=== PATIENT | male | born 1970 | race Caucasian/White ===

== ENCOUNTER 2018-11-14 07:31 | Inpatient (IN) | payer OTHER ==
[~2018-11-14] VITALS: Ht 167.6 cm; Wt 85.3 kg
--- NOTE | 2018-11-14 07:46 | NUR ---
FIRST CONTACT WITH PT. PT FROM [facility], TRANSPORTED BY STAFF. PT C/O RUQ ABD PAIN WITH N/V/D. ROUNDED ON PT, IS GOING TO ORDER LABS AND MEDS. PT INFORMED OF POC, AGREEABLE TO PLAN. VSS.
[2018-11-14] MEDS ORDERED: MORPHINE SULFATE 4 MG/ML, 1ML ONE (07:52)
[2018-11-14] MEDS ORDERED: ONDANSETRON 2MG/ML, 2ML ONE (07:52)
[2018-11-14] MEDS ORDERED: PLEASE ENTER ALLERGIES MC SCH (08:00)
[2018-11-14] MEDS ORDERED: ONDANSETRON 2MG/ML, 2ML IVPush ONE (08:00)
[2018-11-14] MEDS ORDERED: MORPHINE SULFATE 4 MG/ML, 1ML IVPush PRN (08:00)
[2018-11-14 08:09] LABS: BASOPHILS # (AUTO) 0.03 x10^3/uL (0-0.1); BASOPHILS % (AUTO) 0 % (0-1); EOSINOPHILS # (AUTO) 0.21 x10^3/uL (0-0.4); EOSINOPHILS % (AUTO) 2 % (1-7); LYMPHOCYTES # (AUTO) 2.33 x10^3/uL (1-3.4); LYMPHOCYTES % (AUTO) 25 % (22-44); MD NO; MEAN CORPUSCULAR HEMOGLOBIN 30.7 pg (27.5-34.5); MEAN CORPUSCULAR HGB CONC 33.5 g/dL (33.2-36.2); MEAN CORPUSCULAR VOLUME 91.7 fL (81-97); MEAN PLATELET VOLUME 7.9 fL (7.4-10.4); MONOCYTES # (AUTO) 0.49 x10^3/uL (0.2-0.8); MONOCYTES % (AUTO) 5 % (2-9); NEUTROPHILS # (AUTO) 6.46 x10^3/uL (1.8-6.8); NEUTROPHILS % (AUTO) 68 % (42-75); PLATELET COUNT 318 x10^3/uL (130-400); RED BLOOD COUNT 4.69 x10^6/uL (4.38-5.82); RED CELL DISTRIBUTION WIDTH 13.2 % (9.4-14.8)
[2018-11-14 08:18] LABS: ALBUMIN 3.9 g/dL (3.4-5.0); ANION GAP 8 mmol/L (5-15); CALCIUM 8.9 mg/dL (8.5-10.1); CHLORIDE 108 mmol/L (98-107)
[2018-11-14 08:21] LABS: ALANINE AMINOTRANSFERASE 19 U/L (12-78); ALKALINE PHOSPHATASE 94 U/L (45-117); BILIRUBIN,TOTAL 0.5 mg/dL (0.2-1.0); CREATININE 1.22 mg/dL (0.7-1.3); TOTAL PROTEIN 7.2 g/dL (6.4-8.2)
--- NOTE | 2018-11-14 08:48 | NUR ---
Patient is resting comfortably in bed. Vital Signs within normal limits. Pt states pain improved after meds, appears to this RN to be comfortable. NAD.
[2018-11-14] MEDS ORDERED: CEFOTETAN PMX 2GM/50ML 50 ML IV ONE (09:30)
--- NOTE | 2018-11-14 09:49 | NUR ---
Med requested from pharmacy. Pt resting in bed, NADN, denies needs.
[2018-11-14] MEDS ORDERED: LISI5TAB7 PO (09:50)
[2018-11-14] MEDS ORDERED: METF500T17 PO (09:50)
--- NOTE | 2018-11-14 10:17 | NUR ---
DR. CORONADO ROUNDED ON PT. ABX INFUSING PER ORDER. VSS. NAD. CALL LIGHT IN REACH.
--- NOTE | 2018-11-14 10:26 | NUR ---
REPORT GIVEN TO SEJAL, PT WILL GO TO ROOM 437. SURG PLANNED FOR FRIDAY. PT STABLE AND APPROPRIATE FOR ADMIT. VSS.
[2018-11-14 10:47] VITALS: BP 129/68
[2018-11-14] MEDS ORDERED: SODIUM CHLORIDE 0.9% 1,000 ML IV SCH (11:30)
[2018-11-14] MEDS ORDERED: hydrALAzine 20 MG/ML, 1ML IVPush PRN (11:30)
[2018-11-14] MEDS ORDERED: ONDANSETRON 2MG/ML, 2ML IVPush PRN (11:30)
[2018-11-14] MEDS ORDERED: ACETAMINOPHEN 325 MG TABLET PO PRN (11:30)
[2018-11-14] MEDS ORDERED: morphine SULFATE 10 MG/ML, 1ML IVPush PRN (11:30)
[2018-11-14] MEDS ORDERED: LABETALOL 5MG/ML, 20ML IVPush PRN (11:30)
[2018-11-14] MEDS ORDERED: PROMETHAZINE 25 MG/ML, 1ML IM PRN (11:30)
[2018-11-14] MEDS: INSULIN LISPRO 100 UNITS/ML, PEN SQ-INSULIN SCH ×3 (11:34→20:28)
[2018-11-14] MEDS: SODIUM CHLORIDE 0.9% 1,000 ML IV SCH ×5 (11:40→18:35)
[2018-11-14 12:17] LABS: CHOLESTEROL, TOTAL 165 mg/dL (140-239); TRIGLYCERIDES 84 mg/dL (50-200); VLDL CHOLESTEROL 17 mg/dL (0-25)
[2018-11-14 12:19] LABS: CHOL/HDL RATIO 3.6; HDL CHOL % 28 % (26-37); HDL CHOLESTEROL (DIRECT) 46 mg/dL (40-60); LDL CHOLESTEROL,CALCULATED 102 mg/dL (54-169); LDL/HDL RATIO 2.2 (0.5-3.0)
[2018-11-14 12:20] LABS: HEMOGLOBIN A1C 6.3 % (4.2-6.3)
[2018-11-14] MEDS: CEFTRIAXONE PMX 1GM/50ML 50 ML IV SCH (12:25)
[2018-11-14] MEDS: METRONIDAZOLE PMX 500MG/100ML 100 ML IV SCH ×2 (13:11→19:44)
[2018-11-14 14:40] LABS: AMPHETAMINE SCREEN, URINE Negative (Negative); BARBITURATE SCREEN, URINE Negative (Negative); BENZODIAZEPINE SCREEN, URINE Negative (Negative); CANNABINOID SCREEN, URINE Negative (Negative); COCAINE SCREEN, URINE Negative (Negative); METHADONE SCREEN, URINE Negative (Negative); OPIATE SCREEN, URINE Positive (Negative)
[2018-11-14 14:45] VITALS: BP 103/66
[2018-11-14 21:25] VITALS: BP 104/67
[2018-11-15] MEDS: SODIUM CHLORIDE 0.9% 1,000 ML IV SCH ×3 (01:25→18:19)
[2018-11-15] MEDS: METRONIDAZOLE PMX 500MG/100ML 100 ML IV SCH ×4 (01:25→20:11)
[2018-11-15 02:49] VITALS: BP 103/66
[2018-11-15 05:29] LABS: BASOPHILS # (AUTO) 0.03 x10^3/uL (0-0.1); BASOPHILS % (AUTO) 0 % (0-1); EOSINOPHILS # (AUTO) 0.19 x10^3/uL (0-0.4); EOSINOPHILS % (AUTO) 3 % (1-7); LYMPHOCYTES # (AUTO) 2.11 x10^3/uL (1-3.4); LYMPHOCYTES % (AUTO) 33 % (22-44); MD NO; MEAN CORPUSCULAR HEMOGLOBIN 30.9 pg (27.5-34.5); MEAN CORPUSCULAR HGB CONC 33.5 g/dL (33.2-36.2); MEAN CORPUSCULAR VOLUME 92.3 fL (81-97); MEAN PLATELET VOLUME 8.1 fL (7.4-10.4); MONOCYTES # (AUTO) 0.49 x10^3/uL (0.2-0.8); MONOCYTES % (AUTO) 8 % (2-9); NEUTROPHILS # (AUTO) 3.55 x10^3/uL (1.8-6.8); NEUTROPHILS % (AUTO) 56 % (42-75); PLATELET COUNT 251 x10^3/uL (130-400); RED BLOOD COUNT 4.08 x10^6/uL (4.38-5.82); RED CELL DISTRIBUTION WIDTH 13.6 % (9.4-14.8)
[2018-11-15 05:41] LABS: CHLORIDE 113 mmol/L (98-107)
[2018-11-15 05:48] LABS: ALANINE AMINOTRANSFERASE 16 U/L (12-78); ALKALINE PHOSPHATASE 71 U/L (45-117); ANION GAP 2 mmol/L (5-15); BILIRUBIN,TOTAL 0.6 mg/dL (0.2-1.0); CREATININE 1.12 mg/dL (0.7-1.3); TOTAL PROTEIN 5.7 g/dL (6.4-8.2)
[2018-11-15] MEDS: INSULIN LISPRO 100 UNITS/ML, PEN SQ-INSULIN SCH ×4 (06:44→20:16)
[2018-11-15 07:38] VITALS: BP 100/67
[2018-11-15] MEDS: CEFTRIAXONE PMX 1GM/50ML 50 ML IV SCH (11:07)
[2018-11-15 12:33] VITALS: BP 108/62
[2018-11-15] MEDS: HYDROcodone/APAP 5/325 TABLET PO PRN (18:18)
[2018-11-15 19:36] VITALS: BP 108/68
[2018-11-16 01:08] VITALS: BP 117/72
[2018-11-16] MEDS: METRONIDAZOLE PMX 500MG/100ML 100 ML IV SCH ×2 (01:38→09:01)
[2018-11-16] MEDS ORDERED: EPINEPHRINE 1 MG/ML, 1ML ONE (06:07)
[2018-11-16] MEDS ORDERED: BUPIVACAINE/PF 0.5% ONE (06:07)
[2018-11-16] MEDS ORDERED: SUCCINYLCHOLINE 20 MG/ML, 10ML ONE (06:44)
[2018-11-16] MEDS: INSULIN LISPRO 100 UNITS/ML, PEN SQ-INSULIN SCH ×4 (06:44→20:31)
[2018-11-16] MEDS ORDERED: LIDOCAINE-MPF 2% ,5ML ONE (06:44)
[2018-11-16] MEDS ORDERED: PROPOFOL 10 MG/ML, 20ML ONE (06:44)
[2018-11-16] MEDS ORDERED: FENTANYL PF 100 MCG/2ML ONE ×2 (06:44→07:46)
[2018-11-16] MEDS ORDERED: MIDAZOLAM 1 MG/ML, 2ML ONE (06:44)
[2018-11-16] MEDS ORDERED: ROCURONIUM 10MG/ML,5ML ONE (06:45)
[2018-11-16] MEDS ORDERED: ONDANSETRON 2MG/ML, 2ML ONE (06:45)
[2018-11-16] MEDS ORDERED: DEXAMETHASONE 4 MG/ML, 1ML ONE ×2 (06:45)
[2018-11-16] MEDS ORDERED: CEFOTETAN PMX 2GM/50ML 50 ML ONE (06:45)
[2018-11-16] MEDS ORDERED: GLYCOPYRROLATE 0.2MG/1ML, 5ML ONE (07:26)
[2018-11-16] MEDS ORDERED: NEOSTIGMINE 1 MG/ML, 10ML ONE (07:26)
[2018-11-16] MEDS ORDERED: METOCLOPRAMIDE 5 MG/ML, 2ML IV PRN (07:30)
[2018-11-16] MEDS ORDERED: HYDROmorphone 2 MG/ML, 1ML IVPush PRN ×2 (07:30→19:00)
[2018-11-16] MEDS ORDERED: ONDANSETRON 2MG/ML, 2ML IV PRN (07:30)
[2018-11-16] MEDS ORDERED: hydrALAzine 20 MG/ML, 1ML IV PRN (07:30)
[2018-11-16] MEDS ORDERED: LORazepam 2 MG/ML, 1ML IVPush PRN (07:30)
[2018-11-16] MEDS ORDERED: ACETAMINOPHEN 325 MG TABLET PO PRN (07:30)
[2018-11-16] MEDS ORDERED: OXYcodone 5 MG/5 ML ORAL.SOL UDC PO PRN ×2 (07:30→09:00)
[2018-11-16] MEDS ORDERED: METOPROLOL 1 MG/ML, 5ML IV PRN (07:30)
[2018-11-16] MEDS ORDERED: POTASSIUM CHLORIDE 10 MEQ in D5%-0.45% NACL 1,000 ML IV SCH (07:30)
[2018-11-16] MEDS ORDERED: LABETALOL 5MG/ML, 20ML IV PRN (07:30)
[2018-11-16] MEDS ORDERED: MEPERIDINE/PF 25MG/0.5ML IVPush PRN (07:30)
[2018-11-16] MEDS ORDERED: OXYcodone 5 MG/5 ML ORAL.SOL UDC ONE (07:46)
[2018-11-16] MEDS ORDERED: ACETAMINOPHEN 650 MG/20.3 ML UDC ONE (07:46)
[2018-11-16] MEDS: FENTANYL PF 100 MCG/2ML IV PRN ×3 (07:59→08:12)
[2018-11-16] MEDS ORDERED: MEPERIDINE/PF 25MG/ML,1ML ONE (07:59)
[2018-11-16 08:40] VITALS: BP 129/82
[2018-11-16] MEDS ORDERED: ONDANSETRON 2MG/ML, 2ML IVPush PRN (09:00)
[2018-11-16] MEDS: MORPHINE SULFATE 4 MG/ML, 1ML IVPush PRN ×3 (10:32→17:40)
[2018-11-16] MEDS: CEFTRIAXONE PMX 1GM/50ML 50 ML IV SCH (10:55)
[2018-11-16 11:55] LABS: TROPONIN I < 0.015 ng/mL (0.000-0.045)
[2018-11-16] MEDS: HYDROcodone/APAP 5/325 TABLET PO PRN ×3 (12:24→20:32)
[2018-11-16 13:11] VITALS: BP 125/79
[2018-11-16 17:00] LABS: TROPONIN I < 0.015 ng/mL (0.000-0.045)
[2018-11-16] MEDS ORDERED: OXYcodone/APAP 5/325MG TABLET PO PRN (19:00)
[2018-11-16 19:45] VITALS: BP 123/74
[2018-11-16] MEDS: AMOXICILLIN/CLAV 875-125MG TABLET PO SCH (20:32)
[2018-11-17] VITALS: BP 118/72
[2018-11-17 03:55] VITALS: BP 110/67
[2018-11-17] MEDS: HYDROcodone/APAP 5/325 TABLET PO PRN ×2 (04:59→08:55)
[2018-11-17] MEDS: INSULIN LISPRO 100 UNITS/ML, PEN SQ-INSULIN SCH (06:11)
[2018-11-17 07:30] VITALS: BP 127/76
[2018-11-17] MEDS: AMOXICILLIN/CLAV 875-125MG TABLET PO SCH (08:54)
[2018-11-17] MEDS ORDERED: HYDR-3240 PO (09:06)
[2018-11-17] MEDS ORDERED: AMOX1TAB12 PO ×2 (09:48→22:51)
[2018-11-17] MEDS ORDERED: ACET-1770 PO (22:51)
[2018-11-17] MEDS ORDERED: METF500T27 PO (22:51)
[2018-11-17] MEDS ORDERED: LISI-170 PO (22:51)
== END 2018-11-17 10:36 | disposition home or self-care (01) | DRG 417 ==
LOC: ED 07:36 → EDIP 09:18 → 4NOR 10:36
PROVIDERS: ADMIT Internal Medicine; ATTEND Internal Medicine
PROC: 0FT44ZZ Resection of Gallbladder, Percutaneous Endoscopic Approach (ICD-10-PCS; principal; 2018-11-16 07:00)
DX: K80.00 Calculus of gallbladder with acute cholecystitis without obstruction (principal); K85.90 Acute pancreatitis without necrosis or infection, unspecified; E11.65 Type 2 diabetes mellitus with hyperglycemia; F15.90 Other stimulant use, unspecified, uncomplicated; E78.5 Hyperlipidemia, unspecified; R07.9 Chest pain, unspecified; I10 Essential (primary) hypertension; Z80.0 Family history of malignant neoplasm of digestive organs; Z83.3 Family history of diabetes mellitus; Z87.891 Personal history of nicotine dependence; Z79.899 Other long term (current) drug therapy
CPT/HCPCS: 36415; 84145; 99285; J3490; S0020; 71045; 76700; 80053; 80061; 80307; 82962; 83036; 83605; 83690; 84484; 85025; 87040; 88304; 93005; 96365; 96375; C1729; G0378; J0171; J0696; J1100; J2175; J2250; J2405; J2704; J2710; J3010; J3480; J0330; J1815; J2270; J7030

== ENCOUNTER 2018-11-17 22:36 | Emergency (ER) | payer OTHER ==
[~2018-11-17] VITALS: Ht 167.6 cm; Wt 85.0 kg
[~2018-11-17 22:36] MED LIST: AMOX1TAB12 PO; HYDR-3240 PO; LISI5TAB7 PO; METF500T17 PO
--- NOTE | 2018-11-17 22:46 | NUR ---
pt presents d/t severe abdomen pain guard at bed side ( pt came from [facility] ) pt underwent abdomen surgery and sent back to [facility] yesterday today pt had pain at abeomen no nausea diarrhea x 2 + fever abdomen ( step sites intact no drainage )
[2018-11-17] MEDS ORDERED: LISI-170 PO (22:51)
[2018-11-17] MEDS ORDERED: ACET-1770 PO (22:51)
[2018-11-17] MEDS ORDERED: AMOX1TAB12 PO (22:51)
[2018-11-17] MEDS ORDERED: METF500T27 PO (22:51)
[2018-11-17] MEDS ORDERED: HYDROmorphone 1 MG/ML, 1ML VIAL ONE (22:52)
[2018-11-17] MEDS ORDERED: ONDANSETRON 2MG/ML, 2ML ONE (22:52)
[2018-11-17] MEDS ORDERED: ONDANSETRON 2MG/ML, 2ML IVPush ONE (23:00)
[2018-11-17] MEDS ORDERED: SODIUM CHLORIDE 0.9% 1,000ML IVBOLUS ONE (23:00)
[2018-11-17] MEDS ORDERED: HYDROmorphone 2 MG/ML, 1ML IVPush PRN (23:00)
[2018-11-17] MEDS ORDERED: SODIUM CHLORIDE FLUSH 10ML SYR IVF ONE (23:00)
[2018-11-17] MEDS ORDERED: PIPERACILLIN/TAZO/PMX 3.375GM 50 ML ONE (23:10)
--- NOTE | 2018-11-17 23:17 | NUR ---
all medicated labs were drawn ct is next
[2018-11-17 23:20] LABS: BASOPHILS # (AUTO) 0.02 x10^3/uL (0-0.1); BASOPHILS % (AUTO) 0 % (0-1); EOSINOPHILS # (AUTO) 0.05 x10^3/uL (0-0.4); EOSINOPHILS % (AUTO) 1 % (1-7); LYMPHOCYTES # (AUTO) 1.59 x10^3/uL (1-3.4); LYMPHOCYTES % (AUTO) 22 % (22-44); MD NO; MEAN CORPUSCULAR HEMOGLOBIN 30.6 pg (27.5-34.5); MEAN CORPUSCULAR HGB CONC 32.9 g/dL (33.2-36.2); MEAN CORPUSCULAR VOLUME 92.8 fL (81-97); MONOCYTES % (AUTO) 7 % (2-9); NEUTROPHILS # (AUTO) 5.14 x10^3/uL (1.8-6.8); NEUTROPHILS % (AUTO) 70 % (42-75); PLATELET COUNT 280 x10^3/uL (130-400); RED BLOOD COUNT 4.26 x10^6/uL (4.38-5.82); RED CELL DISTRIBUTION WIDTH 13.6 % (9.4-14.8)
[2018-11-17] MEDS ORDERED: PIPERACILLIN/TAZO/PMX 3.375GM 50 ML IV ONE (23:30)
--- NOTE | 2018-11-17 23:32 | NUR ---
CT PENDING LAB/CREATINE.
[2018-11-17 23:33] LABS: ALANINE AMINOTRANSFERASE 68 U/L (12-78); ALBUMIN 3.4 g/dL (3.4-5.0); ANION GAP 4 mmol/L (5-15); CALCIUM 8.5 mg/dL (8.5-10.1); CHLORIDE 105 mmol/L (98-107)
[2018-11-17 23:35] LABS: ALKALINE PHOSPHATASE 87 U/L (45-117); BILIRUBIN,TOTAL 0.4 mg/dL (0.2-1.0); CREATININE 1.15 mg/dL (0.7-1.3); TOTAL PROTEIN 6.9 g/dL (6.4-8.2)
[2018-11-18] MEDS ORDERED: OMNIPAQUE 350 MG/ML, 100ML BOTTLE ONE
[2018-11-18 03:45] VITALS: BP 98/58
--- NOTE | 2018-11-18 03:45 | NUR ---
DC ORDER WAS RECEIVED
[2018-11-18] MEDS ORDERED: OXYcodone/APAP 5/325MG TABLET ONE (03:46)
[2018-11-18] MEDS ORDERED: OXYcodone/APAP 5/325MG TABLET PO ONE (04:00)
== END 2018-11-18 04:02 | disposition home or self-care (01) ==
LOC: ED 11-18 01:06 → MERGE 11-18 01:06 → ED 11-18 04:02
DX: L76.82 Other postprocedural complications of skin and subcutaneous tissue (principal); L03.311 Cellulitis of abdominal wall; R50.81 Fever presenting with conditions classified elsewhere; Z90.49 Acquired absence of other specified parts of digestive tract
CPT/HCPCS: 36415; 74177; 78226; 80053; 83605; 83690; 85025; 87040; 96365; 96375; 99284; A9537; C9898; J1170; J2405; J2543; J7030; Q9967

== ENCOUNTER → 2019-07-20 | Outpatient (CLI) | payer OTHER ==
[~2019-07-20] MED LIST changes: +ACET-1770 PO; +LISI-170 PO; +METF500T27 PO; +OMNIPAQUE 350 MG/ML, 100ML BOTTLE ONE
== END | disposition home or self-care (01) ==
LOC: RAD 10:24
PROVIDERS: ATTEND Internal Medicine Endocrinology, Diabetes & Metabolism
DX: K76.89 Other specified diseases of liver (principal); F32.9 Major depressive disorder, single episode, unspecified; Z90.49 Acquired absence of other specified parts of digestive tract
CPT/HCPCS: 74170; Q9967